=== PATIENT | female | born 1975 | race Caucasian/White ===

== ENCOUNTER → 2023-03-05 08:44 | Outpatient (CLI) | payer OTHER, SELFPAY ==
--- NOTE | 2023-03-05 08:49 | DI.MG.S_ITS ---
BILATERAL DIGITAL SCREENING MAMMOGRAM 3D/2D WITH CAD: 03/05/2023 CLINICAL: Routine screening. Additional films were requested but not obtained. Both breasts are heterogeneously dense, which may obscure small masses (category c / 51-75% glandular tissue). Current study was also evaluated with a Computer Aided Detection (CAD) system. There is a 0.9 cm oval equal density focal asymmetry in the left breast at 3 o'clock middle depth. No other significant masses, calcifications, or other findings are seen in either breast. IMPRESSION: INCOMPLETE: NEED PRIOR STUDIES FOR COMPARISON The 0.9 cm oval equal density focal asymmetry in the left breast resembles a cyst or a lymph node and is indeterminate. Additional views with possible ultrasound are recommended. Based on the Tyrer Cuzick model (a risk assessment model) the patient's lifetime risk is 13.4% and her 10 year risk is 3.2%. According to the ACR, ACS, and NCCN guidelines, an annual breast MRI exam along with mammogram is recommended if the patient's lifetime risk is 20% or greater. This exam was interpreted at Station ID: [id number]. NOTE: For mammograms, a report in lay terms will be sent to the patient. Approximately 15% of breast malignancies will not be visualized mammographically. In the management of a palpable breast mass, a negative mammogram must not discourage biopsy of a clinically suspicious lesion. Electronically Signed By: Raghu oliver/arie:03/07/2023 07:55:38 letter sent: Additional Imaging Needed ACR BI-RADS Category 0 Need prior studies for comparison 3340F
== END ==
PROVIDERS: Referring Provider Physician Assistant; Visit Provider Physician Assistant
DX: Z12.31 Encounter for screening mammogram for malignant neoplasm of breast (principal)
CPT/HCPCS: 77063; 77067

== ENCOUNTER → 2023-06-08 09:07 | Outpatient (CLI) | payer OTHER, SELFPAY ==
--- NOTE | 2023-06-08 09:13 | DI.MG.S_ITS ---
UNILATERAL LEFT DIGITAL DIAGNOSTIC MAMMOGRAM 3D/2D WITH ADDITIONAL VIEWS: 06/08/2023 CLINICAL: Additional evaluation requested from prior study. Comparison is made to exam dated: 03/05/2023 mammogram - [facility]. The left breast is heterogeneously dense, which may obscure small masses (category c / 51-75% glandular tissue). There is a 0.8 cm oval equal density focal asymmetry in the left breast at 4 o'clock middle depth. This is seen in additional views. No other significant masses or calcifications are seen in the breast. IMPRESSION: INCOMPLETE: NEEDS ADDITIONAL IMAGING EVALUATION The 0.8 cm oval equal density focal asymmetry in the left breast resembles a cyst or a lymph node and is indeterminate. An ultrasound is recommended for further evaluation and is scheduled to immediately follow this examination. Based on the Tyrer Cuzick model (a risk assessment model) the patient's lifetime risk is 13.4% and her 10 year risk is 3.2%. According to the ACR, ACS, and NCCN guidelines, an annual breast MRI exam along with mammogram is recommended if the patient's lifetime risk is 20% or greater. This exam was interpreted at Station ID: [id number]. NOTE: For mammograms, a report in lay terms will be sent to the patient. Approximately 15% of breast malignancies will not be visualized mammographically. In the management of a palpable breast mass, a negative mammogram must not discourage biopsy of a clinically suspicious lesion. Electronically Signed By: Raghu Oliva M.D. aty/:06/08/2023 09:39:01 ACR BI-RADS Category 0: Incomplete 3340F
--- NOTE | 2023-06-08 09:14 | DI.US.S_ITS ---
ULTRASOUND OF LEFT BREAST: 06/08/2023 CLINICAL: Patient returns today to evaluate an asymmetry in the left breast. Comparison is made to exams dated: 06/08/2023 mammogram and 03/05/2023 mammogram - [facility]. Color flow and real-time ultrasound of the left breast were performed. Harding scale images of the real-time examination were reviewed. There is a wider than tall cluster of oval complicated cysts in the left breast at 3 o'clock middle depth. This cluster of oval complicated cysts is hypoechoic with internal echoes and posterior acoustic enhancement. This correlates with mammography findings. Color flow imaging demonstrates that there is no vascularity present. IMPRESSION: PROBABLY BENIGN The wider than tall cluster of oval complicated cysts in the left breast is consistent with complicated cysts and is probably benign. A follow-up left mammogram and left ultrasound in 6 months is recommended to demonstrate stability. Findings and recommendations were conveyed to the patient during today's evaluation. This exam was interpreted at Station ID: [id number]. Electronically Signed By: Raghu Oliva M.D. at/:06/08/2023 11:07:08 letter sent: Followup Recommended Ultrasound BI-RADS: 3 Probably benign
[2023-06-08 11:48] LABS: Add Manual Diff / Slide Review NO; Basophils Absolute Auto 100 /uL (0-100); Eosinophils Absolute Auto 400 /uL (0-450); Eosinophils Percent Auto 3.4 % (2-4); Hematocrit 43.3 % (36-46); Hemoglobin 14.2 g/dL (12.0-16.0); Lymphocytes Absolute Auto 2200 /uL (1100-4500); Lymphocytes Percent Auto 19.6 % (25-40); Mean Corpuscular HGB Conc 32.9 % (30-36); Mean Corpuscular Hemoglobin 28.9 PG (26-34); Mean Corpuscular Volume 87.8 fL (80-100); Monocytes Absolute Auto 800 /uL (0-900); Monocytes Percent Auto 7.1 % (3-14); Neutrophils Absolute Auto 7800 /uL (1500-7000); Neutrophils Percent Auto 68.9 % (50-75); Platelet Count 204 X10^3/uL (150-400); Red Blood Cell Count 4.93 X10^6/uL (4.0-5.2); Red Cell Distribution Width 15.2 % (11.6-14.8); White Blood Cell Count 11.3 X10^3/uL (4.5-11.0)
[2023-06-08 12:12] LABS: Alanine Aminotransferase 18 IU/L (<35); Albumin 4.4 g/dL (3.5-5.0); Albumin Globulin Ratio 1.3 (1.0-2.8); Alkaline Phosphatase 74 U/L (38-126); Aspartate Aminotransferase 20 IU/L (14-36); BUN Creatinine Ratio 19.4 (6-22); Bilirubin Total 0.5 mg/dL (0.2-1.3); Blood Urea Nitrogen 13 mg/dL (7-17); Calcium 8.9 mg/dL (8.4-10.2); Carbon Dioxide 27 mmol/L (22-32); Chloride 103 mmol/L (98-107); Cholesterol 224 mg/dL (140-199); Estimated Glomerular Filt Rate > 60 mL/min (>60); Globulin 3.4 g/dL (1.7-4.1); Glucose 91 mg/dL (70-100); HDL Cholesterol 56 mg/dL (40-60); HEMOLYSIS < 15 (0-50); LDL Cholesterol Calculated 148 mg/dL (<100); Potassium 4.7 mmol/L (3.4-5.1); Sodium 138 mmol/L (137-145); Total Protein 7.8 g/dL (6.3-8.2); Triglycerides 102 mg/dL (35-150)
[2023-06-08 12:29] LABS: Follicle Stimulating Hormone 0.82 mIU/mL
[2023-06-08 12:45] LABS: Estradiol, Total 72.5 pg/mL; Thyroid Stimulating Hormone 0.578 uIU/mL (0.47-4.68)
== END ==
PROVIDERS: Referring Provider Physician Assistant; Visit Provider Physician Assistant
DX: Z00.00 Encounter for general adult medical examination without abnormal findings (principal); R92.8 Other abnormal and inconclusive findings on diagnostic imaging of breast; N95.1 Menopausal and female climacteric states; N60.02 Solitary cyst of left breast
CPT/HCPCS: 76642; 77065; 80053; 80061; 82670; 83001; 84443; 85025; G0279

== ENCOUNTER → 2023-12-19 11:58 | Outpatient (CLI) | payer OTHER, SELFPAY ==
--- NOTE | 2023-12-19 | DI.US.S_ITS ---
LIMITED ULTRASOUND OF LEFT BREAST: 12/19/2023 CLINICAL: Patient returns today to evaluate a focal asymmetry in the left breast. Comparison is made to exams dated: 12/19/2023 mammogram, 06/08/2023 ultrasound, 06/08/2023 mammogram, and 03/05/2023 mammogram - [facility]. Color flow ultrasound of the left breast 3 o'clock region was performed. Harding scale images of the real-time examination were reviewed. There is an oval cluster of cysts in the left breast at 3 o'clock middle depth. Together it measures 1.3 cm corresponding to the mammogram finding. Two cysts are anechoic and one is minimally complicated/ septated. These abnormalities are not significantly changed and correlate with mammography findings. Color flow imaging demonstrates that there is no vascularity present. IMPRESSION: PROBABLY BENIGN The cyst cluster in the left breast is stable, most consistent with a complicated cyst and is probably benign. A follow-up left ultrasound in 6 months is recommended to demonstrate stability. Findings and recommendations were conveyed to the patient at time of exam. This exam was interpreted at Station ID: [id number]. Electronically Signed By: Vicenta cantu/:12/19/2023 13:38:54 letter sent: Followup Recommended Ultrasound BI-RADS: 3 Probably benign
--- NOTE | 2023-12-19 | DI.US.S_ITS ---
LIMITED ULTRASOUND OF RIGHT BREAST: 12/19/2023 CLINICAL: Patient returns today to evaluate a focal asymmetry in the right breast. Comparison is made to exams dated: 10/05/2018 ultrasound - [facility], 12/19/2023 mammogram, and 03/05/2023 mammogram - [facility]. Color flow ultrasound of the right breast 12 o'clock, and retroareolar regions was performed. Harding scale images of the real-time examination were reviewed. There is a large, benign area of fibrocystic tissue in the right breast at 12 o'clock anterior depth. This area of fibrocystic tissue is anechoic. This correlates with mammography findings. Color flow imaging demonstrates that there is no vascularity present. IMPRESSION: BENIGN There is no sonographic evidence of malignancy. The area of fibrocystic tissue in the right breast corresponds to the mammogram finding, and is benign. Return to annual mammogram screening schedule is recommended. Findings and recommendations were conveyed to the patient at time of exam. This exam was interpreted at Station ID: [id number]. Electronically Signed By: Vicenta cantu/:12/19/2023 14:18:24 Entry: anthony - 12/20/2023 13:39:57 Ultrasound BI-RADS: 2 Benign
--- NOTE | 2023-12-19 | DI.MG.S_ITS ---
BILATERAL DIGITAL DIAGNOSTIC MAMMOGRAM 3D/2D: 12/19/2023 CLINICAL: Short term follow up of the left breast, due for bilateral imaging. Comparison is made to exams dated: 06/08/2023 ultrasound, 06/08/2023 mammogram, and 03/05/2023 mammogram - [facility]. Both breasts are heterogeneously dense, which may obscure small masses (category c / 51-75% glandular tissue). There is a new oval low density asymmetry with an indistinct margin in the right breast posterior depth lateral region seen on the craniocaudal view only. The 0.8 cm oval equal density focal asymmetry in the left breast at 4 o'clock middle depth is stable and seen in additional views. No other significant masses or calcifications are seen in either breast. IMPRESSION: INCOMPLETE: NEEDS ADDITIONAL IMAGING EVALUATION The new oval low density asymmetry in the right breast posterior depth lateral region seen on the craniocaudal view only is indeterminate. An ultrasound is recommended. This was performed immediately following this exam. The 0.8 cm oval equal density focal asymmetry in the left breast at 4 o'clock middle depth resembles a cyst or a lymph node and is stable. An ultrasound is recommended. This was performed immediately following this exam. Based on the Tyrer Cuzick model (a risk assessment model) the patient's lifetime risk is 13.4% and her 10 year risk is 3.2%. According to the ACR, ACS, and NCCN guidelines, an annual breast MRI exam along with mammogram is recommended if the patient's lifetime risk is 20% or greater. This exam was interpreted at Station ID: [id number]. NOTE: For mammograms, a report in lay terms will be sent to the patient. Approximately 15% of breast malignancies will not be visualized mammographically. In the management of a palpable breast mass, a negative mammogram must not discourage biopsy of a clinically suspicious lesion. Electronically Signed By: Vicenta cantu/:12/19/2023 14:16:32 ACR BI-RADS Category 0: Incomplete 3340F
== END ==
LOC: MAMMO 11:59
PROVIDERS: PCP Physician Assistant; Referring Provider Physician Assistant; Visit Provider Physician Assistant
DX: R92.8 Other abnormal and inconclusive findings on diagnostic imaging of breast (principal); R92.333 Mammographic heterogeneous density, bilateral breasts; N60.02 Solitary cyst of left breast
CPT/HCPCS: 76642; 77066; G0279

== ENCOUNTER → 2024-10-04 10:44 | Outpatient (CLI) | payer OTHER, SELFPAY ==
--- NOTE | 2024-10-04 10:46 | DI.US.S_ITS ---
LIMITED ULTRASOUND OF LEFT BREAST: 10/04/2024 CLINICAL: Patient returns today to evaluate a focal asymmetry in the left breast. Comparison is made to exams dated: 12/19/2023 ultrasound, 12/19/2023 mammogram, 06/08/2023 ultrasound, 06/08/2023 mammogram, 03/05/2023 mammogram - [facility], and 10/05/2018 ultrasound - [facility]. Color flow and real-time ultrasound of the left breast were performed. There are multiple clusters of cysts in the left breast at 3 o'clock, 5 cm from the nipple. There is an oval hypoechoic mass with circumscribed margins at 3 o'clock, 4 cm from the nipple measuring 0.5 x 0.4 x 0.5 cm. There is suggestion of posterior acoustic enhancement and may represent a complicated cyst. IMPRESSION: PROBABLY BENIGN Left breast clustered cysts and probable complicated cyst at 3 o'clock position. Findings are probably benign. Recommend follow-up mammogram and ultrasound in December 2024 when patient will be due for bilateral mammogram. Findings and recommendations were conveyed to the patient during today's evaluation. This exam was interpreted at Station ID: [id number]. Electronically Signed By: Freya Farias M.D., Ph.D. eb/:10/06/2024 04:48:29 letter sent: Followup Recommended ACR BI-RADS Category 3: Probably Benign
== END ==
PROVIDERS: PCP Physician Assistant; Referring Provider Physician Assistant; Visit Provider Physician Assistant
DX: R92.8 Other abnormal and inconclusive findings on diagnostic imaging of breast (principal); N60.02 Solitary cyst of left breast
CPT/HCPCS: 76642

== ENCOUNTER → 2024-10-05 12:07 | Outpatient (CLI) | payer OTHER, SELFPAY ==
--- NOTE | 2024-10-05 12:08 | DI.RAD.S_ITS ---
PROCEDURE: FL WRIST INJECTION MR/CT LT INDICATIONS: ACUTE WRIST PAIN COMPARISON: None. TECHNIQUE: After informed consent had been obtained, the wrist was examined fluoroscopically, and a site chosen for injection of the radiocarpal compartment from a dorsal approach. Skin was prepped and draped in a sterile fashion and 1% lidocaine infiltrated from the skin down to the articular surface. A hypodermic needle was then introduced into the articular space and a modest amount of contrast medium was instilled confirming intra-articular needle tip placement. This was followed by approximately 4 mL of a dilute gadolinium solution. Needle was removed and dressing was applied. The patient experienced no complications throughout the procedure and left the fluoroscopic suite in no apparent distress. FINDINGS: A single fluoroscopic spot image demonstrates intra-articular location to injected iodinated contrast. IMPRESSION: Fluoroscopic guided administration of dilute Gadolinium solution for wrist MR arthrogram. Dictated by: Mart Ruiz M.D. on 10/05/2024 at 15:25 Approved by: Mart Ruiz M.D. on 10/05/2024 at 15:26
--- NOTE | 2024-10-05 12:09 | DI.MRI.S_ITS ---
PROCEDURE: MR WRIST LT W CON INDICATIONS: ACUTE WRIST PAIN TECHNIQUE: After the administration of 3-4 mL of dilute intra-articular Gadolinium contrast into the radiocarpal compartment, coronal T1 spin echo with fat saturation and T2 fast spin echo with fat saturation, axial T1 spin echo and T2 fast spin echo with fat saturation, sagittal T1 spin echo with and without fat saturation through the wrist. COMPARISON: [facility], CR, XR WRIST 3+ VIEWS LEFT, 09/11/2024, 13:08. FINDINGS: Image quality: Somewhat limited evaluation given only a small amount intra-articular contrast seen within the radiocarpal joint. Bones and cartilage: There is a minimally impacted fracture of the distal radius, with intra-articular extension. Associated marrow edema, suggestive of acute etiology. In addition, there is mild marrow edema of the proximal lunate, nonspecific and may represent marrow contusion. Mild marrow edema of the proximal scaphoid, likely representing marrow contusion as well. Additional scattered T2 hyperintensity within the carpal bones and the base of the metacarpals, nonspecific. Carpal ligaments: The scapholunate and lunotriquetral ligaments appear intact, without gadolinium extravasation into the mid-carpal compartment. The radioscaphocapitate and radiolunotriquetral ligaments appear intact. The arcuate ligament and short radiolunate ligament also appear normal. The dorsal intercarpal and radiotriquetral ligaments appear intact. On sagittal images, the pisohamate ligament appears intact. Triangular fibrocartilage complex: The triangular fibrocartilage disc, with its styloid and foveal lamina, appears intact. Tendons and soft tissues: The carpal tunnel structures appear normal, including the median nerve. The ulnar nerve appears normal within Guyon's canal. Contrast is seen within the 2nd, 3rd, and 4th extensor compartment at the level of the distal radius and the carpal row. No ganglion cyst. IMPRESSION: 1. Minimally impacted fracture of the distal radius, acute. 2. Mild marrow contusion of the proximal lunate and the proximal scaphoid. Dictated by: Shauna Goss M.D. on 10/05/2024 at 15:52 Approved by: Shauna Goss M.D. on 10/05/2024 at 16:03
[2024-10-05] MEDS: SODIUM CHLORIDE 0.9 % 20 ML VIAL IV (17:08)
[2024-10-05] MEDS: LIDOCAINE 1% 20 ML INJ (17:08)
== END ==
PROVIDERS: PCP Physician Assistant; Referring Provider Physician Assistant; Visit Provider Physician Assistant
DX: S52.572A Other intraarticular fracture of lower end of left radius, initial encounter for closed fracture (principal); S60.212A Contusion of left wrist, initial encounter; M25.539 Pain in unspecified wrist
CPT/HCPCS: 25246; 73115; 73222; A9579; Q9967

== ENCOUNTER → 2025-01-29 08:42 | Outpatient (CLI) | payer OTHER, SELFPAY ==
--- NOTE | 2025-01-29 08:46 | DI.US.S_ITS ---
MM diagnostic mammo BI, US breast LT limited: 01/29/2025 BI-RADS: 2 CLINICAL: 49-year old female for bilateral diagnostic mammogram and left diagnostic breast ultrasound. The patient presents for short interval follow-up. Tyrer-Cuzick lifetime risk of 9.3%. No personal or first-degree family history of breast cancer. Current reported family history of breast cancer: maternal grandmother. PRIOR EXAMS 10/04/2024, 12/19/2023, 06/08/2023, 03/05/2023. MAMMOGRAPHY TECHNIQUE: 2D and 3D (tomosynthesis) digital mammographic views obtained, with additional images as needed for full coverage. Current study was also evaluated with a Computer Aided Detection (CAD) system. ULTRASOUND TECHNIQUE Real-time cr scale and color doppler imaging of the area of clinical interest was performed with image documentation. TARGETED Left Breast Ultrasound: Real-time ultrasound exam was performed focused to area of clinical and/or imaging concern. DENSITY C. The breasts are heterogeneously dense, which may obscure small masses. MAMMOGRAPHY FINDINGS Bilateral: Benign-appearing masses noted. There are no suspicious masses, calcifications, or other findings in the breast. No significant change from comparison. ULTRASOUND FINDINGS Left: Outer at 3:00, 5 cm from nipple, measuring 1.3 x 0.8 x 1.3 cm: There is a cluster of macrocysts present. Left: Outer at 3:00, 4 cm from nipple, measuring 0.5 x 0.3 x 0.5 cm, previously measuring 0.5 x 0.4 x 0.5 cm: There is a complicated cyst showing posterior acoustic enhancement. This finding appears similar to decreased in size compared to cine images from ultrasound 06/08/2023. IMPRESSION: * No evidence of malignancy with benign findings. RECOMMENDATIONS Bilateral * Annual screening mammography. OVERALL ASSESSMENT CATEGORY BI-RADS-2: Benign. The [employer] recommends annual screening mammography beginning at age 40 for women with average risk of breast cancer. ELECTRONICALLY SIGNED: Tiffanie Pool M.D. on 01/29/2025 at 10:06:57 AM PT Interpreting Station ID: [id number]
== END ==
PROVIDERS: PCP Physician Assistant; Referring Provider Physician Assistant; Visit Provider Physician Assistant
DX: R92.8 Other abnormal and inconclusive findings on diagnostic imaging of breast (principal); N60.02 Solitary cyst of left breast; R92.333 Mammographic heterogeneous density, bilateral breasts; Z80.3 Family history of malignant neoplasm of breast
CPT/HCPCS: 76642; 77066; G0279